=== PATIENT | female | born 1970 | race Caucasian/White ===

== ENCOUNTER → 2021-05-01 | Outpatient (CLI) | payer BC | LOC: M WUC 13:44 | PROVIDERS: ATTEND Physician Assistant | DX: M46.97 Unspecified inflammatory spondylopathy, lumbosacral region (principal); S39.012A Strain of muscle, fascia and tendon of lower back, initial encounter; X58.XXXA Exposure to other specified factors, initial encounter; Y92.9 Unspecified place or not applicable; Y93.9 Activity, unspecified; Y99.9 Unspecified external cause status ==